=== PATIENT | female | born 1995 | race Two or more races ===

== ENCOUNTER 2024-04-08 15:00 | Inpatient (IN) | payer OTHER ==
[~2024-04-08] VITALS: Ht 162.6 cm; Wt 89.8 kg
[2024-04-21 16:15] VITALS: BP 123/78
[2024-04-21 17:03] LABS: HEMOGLOBIN 12.7 g/dL (12.0-15.00); MEAN CELL VOLUME 89.4 fL (80.00-100.00); MEAN CORPUSCULAR HEMOGLOBIN 30.8 pg (27.00-32.0); MEAN CORPUSCULAR HGB CONC 34.4 g/dl (32.0-36.0); PLATELET COUNT 248 K/uL (150-450); RED BLOOD COUNT 4.14 M/uL (4.00-6.00)
[2024-04-21] MEDS ORDERED: VANCOMYCIN HCL 1,000 MG VIAL IV SCH (17:15)
[2024-04-21] MEDS ORDERED: RINGERS SOLUTION,LACTATED 1,000 ML IV SCH (17:15)
[2024-04-21 17:22] LABS: INR < 0.93; PARTIAL THROMBOPLASTIN TIME 27.7 SECONDS (22.0-34.0); PROTHROMBIN TIME 9.8 SECONDS (9.0-11.5)
[2024-04-21 17:26] LABS: BILIRUBIN TOTAL 0.36 mg/dL (0.3-1.2); CALCIUM 9.1 mg/dL (8.5-10.1); CREATININE SERUM 0.64 mg/dL (0.55-1.02); GFR 108.96; GLOBULINA 3.9 G/DL (2.4-3.5); POTASSIUM 4.29 mEq/L (3.5-5.1); TOTAL PROTEIN 6.9 gm/dL (6.4-8.2)
[2024-04-21 20:16] VITALS: BP 111/66
[2024-04-21] MEDS ORDERED: MISOPROSTOL 25 MCG TABLET VAG ONE (22:15)
[2024-04-21] MEDS ORDERED: ACETAMINOPHEN 500 MG GEL..CAP PO PRN (23:00)
[2024-04-21 23:24] VITALS: BP 127/71
[2024-04-22 03:55] VITALS: BP 125/79
[2024-04-22 07:28] VITALS: BP 124/79
[2024-04-22] MEDS ORDERED: OXYTOCIN 500 ML IV ONE (08:00)
[2024-04-22] MEDS ORDERED: MORPHINE SULFATE 4 MG/ML CARTRIDGE IV ONE (10:15)
[2024-04-22 10:18] VITALS: BP 132/71
[2024-04-22 11:31] VITALS: BP 127/79
[2024-04-22] MEDS ORDERED: PRENATAL + DHA1 EAC1 PO (12:22)
[2024-04-22] MEDS ORDERED: CLINDAMYCIN PHOSPHATE 150 MG/ML (900mg) IV SCH (12:45)
[2024-04-22] MEDS ORDERED: ERYTHROMYCIN BASE OPHT 1GM EACH TUBE OP ONE (12:45)
[2024-04-22] MEDS ORDERED: OXYTOCIN 10 UNITS/ML VIAL IV ONE (12:45)
[2024-04-22] MEDS ORDERED: PROMETHAZINE HCL 25 MG/ML AMPUL IV SCH (14:00)
[2024-04-22] MEDS ORDERED: OXYTOCIN 1,000 ML IV ONE (14:15)
[2024-04-22] MEDS ORDERED: RINGERS SOLUTION,LACTATED 1,000 ML IV SCH (14:15)
[2024-04-22] MEDS ORDERED: MEPERIDINE HCL 25 MG/ML AMPUL IV PRN (14:15)
[2024-04-22] MEDS ORDERED: MORPHINE SULFATE 4 MG/ML VIAL IV ONE (15:00)
[2024-04-22 16:54] VITALS: BP 121/65
[2024-04-22] MEDS ORDERED: GABAPENTIN 300 MG CAPSULE PO SCH (17:00)
[2024-04-22] MEDS ORDERED: ACETAMINOPHEN 500 MG GEL..CAP PO SCH (18:00)
[2024-04-23 00:54] VITALS: BP 112/65
[2024-04-23] MEDS ORDERED: OxyCODONE HCL 5 MG TABLET (ROXICODONE) PO PRN (08:00)
[2024-04-23 08:40] LABS: HEMATOCRIT 34.6 % (36.0-45.00); HEMOGLOBIN 11.6 g/dL (12.0-15.00); MEAN CELL VOLUME 92.8 fL (80.00-100.00); MEAN CORPUSCULAR HEMOGLOBIN 31.1 pg (27.00-32.0); MEAN CORPUSCULAR HGB CONC 33.6 g/dl (32.0-36.0); PLATELET COUNT 201 K/uL (150-450); RED BLOOD COUNT 3.73 M/uL (4.00-6.00); RED CELL DISTRIBUTION WIDTH 12.9 % (11.5-14.5)
[2024-04-23 09:00] VITALS: BP 105/67; BP 130/89
[2024-04-23] MEDS ORDERED: DOCUSATE SODIUM 100MG CAP PO SCH (09:00)
[2024-04-23 16:37] VITALS: BP 125/85
[2024-04-24] VITALS: BP 112/57
[2024-04-24 17:19] VITALS: BP 113/73
[2024-04-25] VITALS: BP 110/72
[2024-04-25 08:31] VITALS: BP 125/69
[2024-04-25 16:04] VITALS: BP 135/57
== END 2024-04-25 18:09 | disposition home or self-care (01) | DRG 788 ==
LOC: LDR 04-16 15:00 → O/R 04-22 13:27 → OB/GYN 04-22 13:47
PROVIDERS: Obstetrics & Gynecology; ADMIT Obstetrics & Gynecology; ATTEND Obstetrics & Gynecology
PROC: 3E0P7VZ Introduction of Hormone into Female Reproductive, Via Natural or Artificial Opening (ICD-10-PCS; 2024-04-21)
PROC: 4A1HXCZ Monitoring of Products of Conception, Cardiac Rate, External Approach (ICD-10-PCS; 2024-04-21)
PROC: 3E033VJ Introduction of Other Hormone into Peripheral Vein, Percutaneous Approach (ICD-10-PCS; 2024-04-22)
PROC: 10D00Z1 Extraction of Products of Conception, Low, Open Approach (ICD-10-PCS; principal; 2024-04-22 13:30)
DX: O62.1 Secondary uterine inertia (principal); O36.8330 Maternal care for abnormalities of the fetal heart rate or rhythm, third trimester, not applicable or unspecified; Z3A.40 40 weeks gestation of pregnancy; Z37.0 Single live birth; Z20.822 Contact with and (suspected) exposure to COVID-19

== ENCOUNTER 2024-04-10 12:29 | Outpatient (CLI) | payer OTHER | END 2024-04-10 13:21 | disposition home or self-care (01) | LOC: NST 12:29 | PROVIDERS: ATTEND Obstetrics & Gynecology Maternal & Fetal Medicine | DX: Z34.83 Encounter for supervision of other normal pregnancy, third trimester (principal) ==

== ENCOUNTER 2024-04-17 12:50 | Outpatient (CLI) | payer OTHER | END 2024-04-17 13:18 | disposition home or self-care (01) | LOC: NST 12:50 | PROVIDERS: ATTEND Obstetrics & Gynecology Maternal & Fetal Medicine | DX: Z34.83 Encounter for supervision of other normal pregnancy, third trimester (principal) ==